=== PATIENT | female | born 1980 | race Caucasian/White ===

== ENCOUNTER 2024-12-18 23:42 | Emergency (ER) | payer OTHER, SELFPAY ==
[2024-12-18 23:42] VITALS: BP 123/88; PULSE 95; RESP 16; TEMP 36.7; O2SAT 100
--- OUTSIDE RECORDS SUMMARY | 2024-12-19 00:01 | XMS_ITS | Encounter Summary ---
Author Organization [facility] Address [address] [place] [address] Care Team Providers Care Steam Setter Name Role Phone Leigh Garcia MD Primary Care Provider [phone] Encounter Details Date Type Department Care Team (Late st Contact Info) Description 04/15/2022 Telephone [facility] [address] [phone] Yair Navarro MD [address] [address] Social History Tobacco Use Types Packs/Day Years Used Date Smoking Tobacco: Former Cigarettes Smokeless Tobacco: Never Comments:physician discussed Alcohol Use Standard Drinks/Week Comments Yes 0 (1 standard drink = 0.6 oz pur e alcohol) occasionally AUDIT-C Answer Date Recorded Frequency of Alcohol Consumption Never 06/12/2019 Average Number of Drinks Not on file 019 Frequency of Binge Drinking Not on file 12/2018 PHQ-2 Answer Date Recorded PHQ-2 Score - If the patient scores above 3, please move on to questions 3-9 0 04/14/2022 Comments No Sex and Gender Information Value Date Recorded Sex Assigned at Not on file Legal Sex Female 9:43 PM MEDICAL ESTHETICIAN Gender Identity Not on file Sexual Orientation Not on file COVID-19 Exposure Response Date Recorded In the last 10 days, have yo u been in contact with someone who was confirmed or suspected to have Coronavirus/COVID-19? No / Unsure 04/14/2022 10:54 AM CDT documented as of this encounter Plan of Treatment Not on file documented as of this encounter Visit Diagnoses Diagnosis Anxiety- Primary Anxiety state, unspecified Tremors of nervous system Abnormal involuntary movements documented in this encounter Additional Health Concerns Infection Onset Date Last Indicated Resolved Time COVID-19 Rule Out 09/10/2022 09/10/2022 09/10/2022 10:37 AM MEDICAL ESTHETICIAN COVID-19 Rule Out 07/28/2024 07/28/2024 07/28/2024 2:44 PM CDT Assessment Noted Time PHQ-9 Depression Total Score: 0 06/11/20 21 12:04 PM CDT documented as of this encounter Care Teams Steam Setter Relationship Specialty Start Date End Date Leigh Garcia MD [address] [place] [address] PCP - General FAMILY PRACTICE 06/12/19 documented as of this encounter
--- OUTSIDE RECORDS SUMMARY | 2024-12-19 00:01 | XMS_ITS | Referral Summary ---
Author Organization [place] [id number] Address [address] [place] [address] Care Team Providers Care Event Technician Name Role Phone Pamela Love NP Unavailable [phone] Leigh Garcia MD Primary Care Provider [phone] Allergies No known active allergies Medications norethindrone (AYGESTIN) 5 mg tabletIndicatio ns:Abnormal menses Take 2 tablets (10 mg total) by mouth daily 60 tablet 11 08/29/2023 Active Active Problems Problem Noted Date Diagnosed Date Abnormal menses 2023 Overview (2023): - Patient with 1 year history of heavy menses - Per chart review, lab work-up WNL. Normal pUS 04/2023 Plan: - Patient likely sheree-menopasual, will aim for medical management to control symptoms until menopause. - Given patient's age and smoker status, not a candidate for estrogen therapy. - Plan for continuous aygestin for menstrual suppression - If medical management does not control symptoms, consider surgical management with ablation vs hyst. Repeat pUS prior to OR. Social History Tobacco Use Types Packs/Day Years Used Date Smoking Tobacco: Never Tobacco Cessation:Counseling Given: Not Answered Personal Safety Answer Date Recorded Getting School Help Needed Not on file 10/21 Comments Unknown Sex and Gender Information Value Date Recorded Sex Assigned at Not on file Legal Sex Female 4:13 PM CDT Gender Identity Not on file Sexual Orientation Not on file Last Filed Vital Signs Vital Sign Reading Time Taken Comments Blood Pressure 110/70 08/29/2023 3:14 PM SENIOR RISK ANALYST Pulse 70 08/29/2023 3:14 PM SENIOR RISK ANALYST Temperature - - Respiratory Rate - - Oxygen Saturation 98% 08/29/2023 3:14 PM SENIOR RISK ANALYST Inhaled Oxygen Concentration - - Weight 68 kg (150 lb) 08/29/2023 3:14 PM SENIOR RISK ANALYST Height 162.6 cm (5' 4 ) 08/29/2023 3:14 PM SENIOR RISK ANALYST Body Mass Index 25.75 08/29/2023 3:14 PM SENIOR RISK ANALYST Plan of Treatment Not on file Insurance [facility] Care Teams Event Technician Relationship Specialty Start Date End Date Leigh Garcia MD [address] [place] [address] PCP - General Family Medicine 07/06/23 Pamela Love NP [address] [place] [address] Nurse Practitioner 07/06/23
--- OUTSIDE RECORDS SUMMARY | 2024-12-19 00:01 | XMS_ITS | Clinical Summary ---
Author Organization [place] [id number] [facility] Address [address] [place] [address] Care Team Providers Care Pickers Material Handlers Name Role Phone Pamela Love NP Unavailable [phone] Leigh Garcia MD Primary Care Provider Allergies No known active allergies Medications norethindrone [...] on file Sexual Orientation Not on file Obstetrics History Last Filed Vital Signs Vital Sign Reading Time Taken Comments Blood Pressure 110/70 08/29/2023 3:14 PM ASSISTANT HVAC MECHANIC Pulse 70 08/29/2023 3:14 PM ASSISTANT HVAC MECHANIC Temperature - - Respiratory Rate - - Oxygen Saturation 98% 08/29/2023 3:14 PM ASSISTANT HVAC MECHANIC Inhaled Oxygen Concentration - - Weight 68 kg (150 lb) 08/29/2023 3:14 PM ASSISTANT HVAC MECHANIC Height 162.6 cm (5' 4 ) 08/29/2023 3:14 PM ASSISTANT HVAC MECHANIC Body Mass Index 25.75 08/29/2023 3:14 PM ASSISTANT HVAC MECHANIC Plan of Treatment Health Maintenance Due Date Last Done Comments Breast Cancer Screening-Mammogram 1980 Cervical Cancer Screening 1980 Depression Screening 1980 Hepatitis C Screening 1980 Varicella Vaccines (1 of 2 - 13+ 2-dose series) 1993 Hepatitis B Screening 1998 Regular Well Visit/Exam 18-64 1998 DTaP/Tdap/Td Vaccine (7 - Td or Tdap) 04/04/2023 04/04/2013, 05/10/1995, 07/01/1985, Additional history exists Covid-19 Vaccine ( - 2023- season) 2024 11/05/2021, 01/20/2021, 12/23/2020 Influenza Vaccine (#1) 2024 , 08/01/2019, 08/01/2019, Additional history exists HPV Vaccines Aged Out No longer eligi ble based on patient's age to complete this topic Pneumococcal vaccine <65 Aged Out No longer eligible based on patient's age to complete this topic Insurance [facility]NA [facility] [facility] Care Teams Pickers Material Handlers Relationship Specialty Start Date End Date Leigh Garcia MD [address] [place] [address] PCP - General Family Medicine 07/06/23 Pamela Love NP [address] [place] [address] Nurse Practitioner 07/06/23
--- OUTSIDE RECORDS SUMMARY | 2024-12-19 00:01 | XMS_ITS | Clinical Summary ---
Author Organization [facility] Address [address] [place] [address] Care Team Providers Care Software Development Project Manager Name Role Phone Leigh Garcia MD Primary Care Provider [phone] Allergies Active Allergy Reactions Criticality Noted Date Comments Erythromycin Unknown 06/12/2019 Medications lisinopril (PRINIVIL) 10 MG tablet Take 1 tablet (10 mg total) by mouth daily. 03/28/2023 Active cyanocobalamin (B-12) 1000 MCG/ML injection 1 mL (1,000 mcg total). 06/22/2023 Active omeprazole (PRILOSEC) 40 MG capsule Take 1 capsule (40 mg total) by mouth as needed. Active albuterol sulfate HFA 108 (90 Base) MCG/ACT inhaler Inhale 2 puffs into the lungs every 6 (six) hours as needed for Wheezing. 6.7 g 07/28/2024 Active clonazePAM (KLONOPIN) 1 MG tablet Take 1 tablet (1 mg total) by mouth 3 (three) times daily. Active Active Problems No known active problems Encounters Date Type Department Care Team Description 09/25/2024 11:59 AM PROSTHODONTIST/EDUCATOR - 09/25/2024 12:23 PM PROSTHODONTIST/EDUCATOR [place] [address] Vivek Hendricks MD EGD with cold forcep biopsies 09/25/2024 11:11 AM PROSTHODONTIST/EDUCATOR [place]esthesia [place] [address] Jackie Burns CRNA 09/25/2024 10:01 AM PROSTHODONTIST/EDUCATOR - 09/25/2024 11:58 AM PROSTHODONTIST/EDUCATOR Hospital Encounter [facility] [place] [address] [place] [address] Vivek Hendricks MD Discharge Disposition: Home or Self Care (Routine Discharge) 09/25/2024 Travel from Last 3 Months Immunizations Name Administration Dates Next Due Afluria 36 MONTHS+ (Prefille d Syringe IIV4) 08/01/2019 Dtp 07/01/1985, 2,03/19/1981, 981,1980 Influenza (Generic) 08/01/2019 MMR 04/18/1991 Measles/Rubella 12/10/1981 Mumps 09/12/1981 Opv 04/27/1986, 2,03/19/1981, 981,1980 Td 05/10/1995 Tdap (Generic) 04/04/2013 Family History Medical History Relation Comments No Known Problems Brother Heart Disease Father No Known Problems Maternal Aunt No Known Problems Maternal Grandfather Breast Cancer Maternal Grandmother No Known Problems Maternal Uncle No Known Problems Mother No Known Problems Paternal Aunt No Known Problems Paternal Grandfather No Known Problems Paternal Grandmother No Known Problems Paternal Uncle No Known Problems Sister Relation Status Comments Brother Father Maternal Aunt Maternal Grandfather Maternal Grandmother Maternal Uncle Mother Paternal Aunt Paternal Grandfather Paternal Grandmother Paternal Uncle Sister Social History Tobacco Use Types Packs/Day Years Used Date Smoking Tobacco: Every Day Cigarettes Smokeless Tobacco: Never Tobacco Cessation:Ready to Q uit: Not Asked; Counseling Given: Not Answered Comments:physician discussed Alcohol Use Standard Drinks/Week Comments [...] on file Legal Sex Female 9:43 PM PROSTHODONTIST/EDUCATOR Gender Identity Not on file Sexual Orientation Not on file Last Filed Vital Signs Vital Sign Reading Time Taken Comments Blood Pressure 135/7 09/25/2024 11:53 AM PROSTHODONTIST/EDUCATOR Pulse 55 09/25/2024 11:53 AM PROSTHODONTIST/EDUCATOR Temperature 36.6 C (97.9 F) 09/25/2024 10:39 AM PROSTHODONTIST/EDUCATOR Respiratory Rate 16 09/25/2024 11:53 AM PROSTHODONTIST/EDUCATOR Oxygen Saturation 100% 09/25/2024 11:53 AM PROSTHODONTIST/EDUCATOR Inhaled Oxygen Concentration - - Weight 68 kg (150 lb) 09/19/2024 12:29 PM PROSTHODONTIST/EDUCATOR Height 162.6 cm (5' 4 ) 09/19/2024 12:29 PM PROSTHODONTIST/EDUCATOR Body Mass Index 25.75 09/19/2024 12:29 PM PROSTHODONTIST/EDUCATOR Plan of Treatment Health Maintenance Due Date Last Done Comments Cervical Cancer Screening Pap Smear (Age 30 to 64) Every 3 Years 1980 Annual Physical 1983 Pneumococcal Vaccine: Pediatrics (0 to 5 Years) and At-Risk Patients (6 to 64 Years) (1 of 2 - PCV) 1986 Hepatitis C 1998 Hepatitis B Vaccines (1 of 3 - 19+ 3-dose series) 1999 Cervical Cancer Screening Pap with HPV Testing (Age 30 to 64) Every 5 Years 2010 Cervical Cancer Screening with HPV 2010 DTaP, Tdap and Td Vaccines (3 - Td or Tdap) 04/04/2023 04/04/2013, 05/10/1995, 07/01/1985, Additional history exists COVID-19 Vaccine ( season) 2024 Influenza Adult (#1) 2024 08/01/2019, 08/01/20 19 Mammogram Screening 07/05/2026 07/05/2024, 04/14/2023, 03/17/2021 HPV Vaccines Aged Out No longer eligi ble based on patient's age to complete this topic Meningococcal B Vaccine Aged Out No l onger eligible based on patient's age to complete this topic Meningococcal Vaccine Aged Out No xochitl jono eligible based on patient's age to complete this topic RSV Immunizations Under 20 Months Aged Out No longer eligible based on patient's age to complete this topic Procedures Procedure Name Priority Date/Time Associated Diagnosis Comments H PYLORI UREASE Routine 09/25/2024 11:16 AM PROSTHODONTIST/EDUCATOR EGD 09/25/2024 11:06 AM PROSTHODONTIST/EDUCATOR Gastric ulcer TEST URINE Routine 09/25/2024 10:26 AM PROSTHODONTIST/EDUCATOR ENDOSCOPY (SCAN ORDER) 09/25/2024 7:19 AM PROSTHODONTIST/EDUCATOR PATHOLOGY Routine 09/25/2024 12:00 AM PROSTHODONTIST/EDUCATOR MG SCREENING W TAWNY GARRETT DIGI Routine 07/05/2024 2:26 PM CDT Visit for screening mammogram from Last 3 Months or Most Recently Relevant to Health Maintenance Results * H PYLORI UREASE (09/25/2024 11:16 AM PROSTHODONTIST/EDUCATOR) SPEC DESCRIPTION GASTRIC BIOPSY 09/25/2024 11:31 AM PROSTHODONTIST/EDUCATOR [facility] SPECIAL REQUESTS NO SPECIAL REQUEST 09/25/2024 11:31 AM PROSTHODONTIST/EDUCATOR [facility] DIRECT EXAM HELICOBACTER PYLORI SCREEN NEGATIVE 09/26/2024 11:55 AM PROSTHODONTIST/EDUCATOR [facility] TISSUE GASTRIC BIOPSY SPECIMEN / Unknown 09/25/2024 11:16 AM PROSTHODONTIST/EDUCATOR us Vivek Hendricks MD MICROBIOLOGY - GENERAL ORDERA BLES Final Result [facility] [address] [place] [address], * TEST URINE (09/25/2024 10:26 AM PROSTHODONTIST/EDUCATOR) URINE HCG TEST NEGATIVE 09/25/2024 10:35 AM PROSTHODONTIST/EDUCATOR [facility] SPECIFIC GRAVITY 1.025 09/25/2024 10:35 AM PROSTHODONTIST/EDUCATOR [facility] URINE SPECIMEN FROM URETHRA / Unknown 09/25/2024 10:26 AM PROSTHODONTIST/EDUCATOR us Jackie Burns CRNA URINE ORDERABLES Final Resul t [facility] [address] [place] [address], [place] [phone] * ENDOSCOPY (SCAN ORDER) (09/25/2024 7:19 AM PROSTHODONTIST/EDUCATOR) us Vivek Hendricks MD SCANNING Final Result * Pathology (09/25/2024 12:00 AM PROSTHODONTIST/EDUCATOR) PATHOLOGY [facility] Department of Laboratory Medicine [address] [place] [address] , extension [phone] Pathology Report Surgical Pathology Report Name: SAMIRA YEPEZ Specimen #: [id number] Age: 11 1980 (Age: 44) Location: [facility] Sex: F Procedure Date: 09/25/2024 Hospital #: [id number] Date Received: 09/26/2024 Date Reported: 09/27/2024 Provider: VIVEK HENDRICKS MD Source: Antrum, biopsies Clinical History: Gastric ulcer. FINAL DIAGNOSIS: Stomach, antrum, biopsy: -Reactive gastropathy. -Negative for Helicobacter pylori by routine histology. Gross Description: Received in formalin, labeled with a patient label and as antrum biopsy is a 0.2 cm piece of sorto tissue. The specimen is entirely submitted in cassette 1. Gross examination (when applicable) was performed at [facility], [address] [place] [address]. This case was interpreted and signed out at [facility], [address] [place] [address]. Electronically Signed Out Katerina Baldwin M.D. [facility] TISSUE STOMACH STRUCTURE / Unknown 09/25/2024 11:16 AM PROSTHODONTIST/EDUCATOR us Vivek Hendricks MD PATHOLOGY/CYTOLOGY ORDERABLES Final Result [facility] [address] [place] [address], [place] [phone] [id number] * MG SCREENING W TAWNY GARRETT DIGI (07/05/2024 2:26 PM CDT) Anatomical Region Laterality Modality Breast Bilateral Mammography 07/05/2024 3:45 PM CDT Impressions 07/05/2024 3:45 PM CDT IMPRESSION: No suspicious change since the previous exams. Recommendation: 1: Routine Screening Bilateral in 1 Year Assessment: ACR BI-RADS 2 - BENIGN FINDING(S) Ordered By: PAMELA BARKSDALE Interpreted By: Lawrence Kimball MD, 07/05/2024 3:45 PM Narrative 07/05/2024 3:45 PM CDT [address] [place] [address] Examination: Digital screening mammogram with CAD. Clinical history: Asymptomatic patient presents for routine screening. Comparison: 04/14/2023, 03/17/2021. Technique: Bilateral digital mammograms. The exam was interpreted with the use of a computer-aided detection (CAD) system. Additional 3-D tomosynthesis images were acquired. Tissue density: The breast tissue is heterogeneously dense. Findings: The breast tissue is heterogeneously dense. The dense tissue may obscure some lesions mammographically. Benign-appearing calcification noted. Benign-appearing intramammary lymph node on the right again evident. No suspicious mass, microcalcification or area of architectural distortion can be identified. From a mammographic standpoint, routine followup in one year would seem adequate. Pamela Barksdale FURNACE DOOR TENDER MAMMO Final Resul t from Last 3 Months or Most Recently Relevant to Health Maintenance Insurance [employer] Care Teams Software Development Project Manager Relationship Specialty Start Date End Date Leigh Garcia MD [address] [place] [address] PCP - General FAMILY PRACTICE 06/12/19
--- OUTSIDE RECORDS SUMMARY | 2024-12-19 00:01 | XMS_ITS | Encounter Summary ---
Author Organization [facility] Address [address] [place] [address] Care Team Providers Care Manager Image Name Role Phone Leigh Garcia MD Primary Care Provider [phone] Encounter Details Date Type Department Care Team (Late st Contact Info) Description 03/17/2019 Abstract [facility] CONVERSION [address] [place] [address] , Generic Conversion, Social History Tobacco Use Types Packs/Day Years Used Date Smoking Tobacco: Never Assessed Comments Unknown Sex and Gender Information Value Date Recorded Sex Assigned at Not on file Legal Sex Female 9:43 PM THEATRICAL RIGGER Gender Identity Not on file Sexual Orientation Not on file documented as of this encounter Plan of Treatment Not on file documented as of this encounter Visit Diagnoses Not on filedocumented in this encounter Additional Health Concerns Infection Onset Date Last Indicated Resolved Time COVID-19 Rule Out 09/10/2022 09/10/2022 09/10/2022 10:37 AM THEATRICAL RIGGER COVID-19 Rule Out 07/28/2024 07/28/2024 07/28/2024 2:44 PM CDT documented as of this encounter Care Teams Manager Image Relationship Specialty Start Date End Date Leigh Garcia MD [address] [place] [phone] PCP - General FAMILY PRACTICE 06/12/19 documented as of this encounter
--- OUTSIDE RECORDS SUMMARY | 2024-12-19 00:01 | XMS_ITS | Encounter Summary ---
Author Organization [facility] Address [facility] [place] [address] Care Team Providers Care Cashier And Salesperson Name Role Phone Leigh Garcia MD Primary Care Provider [phone] Encounter Details Date Type Department Care Team (Late st Contact Info) Description 10/14/2022 Telephone [facility] Neuroscience [facility] [address] [place] [phone] Yair Navarro MD [address] [address] Social History Tobacco Use Types Packs/Day Years Used Date Smoking Tobacco: Every Day Cigarettes Smokeless Tobacco: Never Comments:physician discussed Alcohol [...] on file Legal Sex Female 9:43 PM SENIOR WEB SERVICES DEVELOPER Gender Identity Not on file Sexual Orientation Not on file documented as of this encounter Plan of Treatment Not on file documented as of this encounter Visit Diagnoses Diagnosis Anxiety Anxiety state, unspecified Tremors of nervous system Abnormal involuntary movements documented in this encounter Additional Health Concerns Infection Onset Date Last Indicated Resolved Time COVID-19 Rule Out 07/28/2024 07/28/2024 07/28/2024 2:44 PM CDT Assessment Noted Time PHQ-9 Depression Total Score: 0 06/11/20 21 12:04 PM CDT documented as of this encounter Care Teams Cashier And Salesperson Relationship Specialty Start Date End Date Leigh Garcia MD [address] [place] [phone] PCP - General FAMILY PRACTICE 06/12/19 documented as of this encounter
--- OUTSIDE RECORDS SUMMARY | 2024-12-19 00:01 | XMS_ITS | Encounter Summary ---
Author Organization [facility] Address [facility] [place] [address] Care Team Providers Care Silica Filter Operator Name Role Phone Leigh Garcia MD Primary Care Provider [phone] Encounter Details Date Type Department Care Team (Late st Contact Info) Description 06/09/2020 Telephone [facility] [address] [place] [phone] Yair Navarro MD [address] [address] Social History Tobacco Use Types Packs/Day Years Used Date Smoking Tobacco: Every Day Cigarettes Smokeless Tobacco: Never Alcohol Use Standard Drinks/Week Comments Yes 0 (1 standard drink = 0.6 oz pur e alcohol) occasionally AUDIT-C Answer Date Recorded Frequency of Alcohol Consumption Never 06/12/2019 Average Number of Drinks Not on file 019 Frequency of Binge Drinking Not on file 12/2018 Comments No Sex and Gender Information Value Date Recorded Sex Assigned at Not on file Legal Sex Female 9:43 PM PLANNING DIVISION SUPERINTENDENT Gender Identity Not on file Sexual Orientation Not on file COVID-19 Exposure Response Date Recorded In the last month, have you been in contact with someone who was confirmed or suspected to have Coronavirus / COVID-19? No / Unsure 06/05/2020 12:04 PM CDT documented as of this encounter Progress Notes * Yair Navarro MD - 06/09/2020 12:36 PM CDT documented in this encounter Plan of Treatment Not on file documented as of this encounter Visit Diagnoses Diagnosis Anxiety- Primary Anxiety state, unspecified documented in this encounter Additional Health Concerns Infection Onset Date Last Indicated Resolved Time COVID-19 Rule Out 09/10/2022 09/10/2022 09/10/2022 10:37 AM PLANNING DIVISION SUPERINTENDENT COVID-19 Rule Out 07/28/2024 07/28/2024 07/28/2024 2:44 PM CDT documented as of this encounter Care Teams Silica Filter Operator Relationship Specialty Start Date End Date Leigh Garcia MD [address] [place] [phone] PCP - General FAMILY PRACTICE 06/12/19 documented as of this encounter
[2024-12-19] MEDS: IBUPROFEN 400 MG TABLET 800 MG PO (00:02)
[2024-12-19] MEDS: Please add drug allergy info to patient profile. 1 EACH XX (00:03)
[2024-12-19 00:30] LABS: Strep Group A RT-PCR NOT DETECTED (Negative)
--- NOTE | 2024-12-19 00:30 | ED.URI ---
HPI - URI/Sore Throat General Chief Complaint: Upper Respiratory Infection Stated Complaint: flu symptoms Time Seen by Provider: 12/18/24 23:49 Source: patient Mode of arrival: ambulatory Limitations: no limitations History of Present Illness HPI Narrative: 44 years old white female came to the ED from home by private car complaining of body ache, headache, sore throat, dry cough started yesterday. Positive flu exposure in the last few days. Patient denies any chest pain or shortness of breath. Related Data Home Medications ?Medication ?Instructions ?Recorded ?Confirmed ?Last Taken ?Type clonazepam 1 mg tablet 1 mg PO DAILY 12/19/24 12/19/24 Unknown History lisinopril 10 mg tablet 10 mg PO DAILY 12/19/24 12/19/24 Unknown History Allergies Allergy/AdvReac Type Severity Reaction Status Date / Time azithromycin Allergy Intermediate Hives Verified 12/18/24 23:57 Course Vital Signs Vital signs: Vital Signs Temperature 36.7 C 12/18/24 23:42 Pulse Rate 95 12/18/24 23:42 Respiratory Rate 16 12/18/24 23:42 Blood Pressure 123/88 12/18/24 23:42 Pulse Oximetry 100 12/18/24 23:42 Oxygen Delivery Room Air 12/18/24 23:42 Temperature 36.7 C 12/18/24 23:42 Pulse Rate 95 12/18/24 23:42 Respiratory Rate 16 12/18/24 23:42 Blood Pressure 123/88 12/18/24 23:42 Pulse Oximetry 100 12/18/24 23:42 Oxygen Delivery Room Air 12/18/24 23:42 MDM - URI/Sore Throat MDM Narrative Medical decision making narrative: patient came with upper respiratory viral infection like symptoms Tested positive for influenza A Discharged on Tamiflu Differential Diagnosis Differential diagnosis: Likely upper respiratory infection, viral infection, influenza and pharyngitis Lab Data Labs: Lab Results 12/18/24 12/19/24 Range/Units 23:56 00:26 Influenza A (RT-PCR) Pending Influenza B (RT-PCR) Pending RSV (RT-PCR) Pending SARS-CoV-2 RNA (RT-PCR) Pending Group A Strep (PCR) Pending Critical Care Time Critical Care Time Critical Care Time: No Discharge Plan Discharge Clinical Impression: Influenza Patient Disposition: Home, Self-Care Condition: Stable Instructions: Influenza (ED) Additional Instructions: Return if symptoms are worsening , call your family physician for appointment, take Tylenol , ibuprofen as as needed for aches and pain, continue home medications. Patient Language: Luxembourgish Prescriptions: New oseltamivir [Tamiflu] 75 mg capsule 75 mg PO BID Qty: 10 0RF No Action clonazepam 1 mg tablet 1 mg PO DAILY lisinopril 10 mg tablet 10 mg PO DAILY Follow-up/Referrals: UNKNOWN,DOCTOR [Primary Care Provider] - Stand Alone Forms: Work/School Release IP
[2024-12-19 00:35] LABS: Influenza A QL RT-PCR Positive (Negative); Influenza B QL RT-PCR Negative (Negative); RSV RNA, RT-PCR Negative (Negative); SARS-CoV-2 RNA PCR Negative (Negative)
[2024-12-19] MEDS: OSELTAMIVIR PHOSPHATE 75 MG CAPSULE PO (00:57)
[2024-12-19 01:19] VITALS: BP 125/89; PULSE 90; RESP 16; TEMP 36.8; O2SAT 100
== END 2024-12-19 01:22 | disposition home or self-care (01) ==
PROVIDERS: Emergency Provider Emergency Medicine
DX: J11.1 Influenza due to unidentified influenza virus with other respiratory manifestations (principal); Z79.899 Other long term (current) drug therapy; Z20.822 Contact with and (suspected) exposure to COVID-19
CPT/HCPCS: 87637; 87651; 99283; A9270